=== PATIENT | male | born 1990 | race Caucasian/White ===

== ENCOUNTER 2019-01-03 22:19 | Emergency (ER) | payer SELFPAY ==
[~2019-01-03] VITALS: Ht 185.4 cm; Wt 105.5 kg
[2019-01-03 22:55] VITALS: Ht 185.4 cm; Wt 105.5 kg
[2019-01-04 01:28] VITALS: BP 132/82
== END 2019-01-04 01:53 | disposition home or self-care (01) ==
LOC: ED 22:19
DX: L50.9 Urticaria, unspecified (principal); A08.4 Viral intestinal infection, unspecified
CPT/HCPCS: 87804; J0171; J1200; J7512

== ENCOUNTER 2020-08-28 16:55 | Emergency (ER) | payer MEDICAID ==
[~2020-08-28] VITALS: Ht 182.9 cm; Wt 110.7 kg
[2020-08-28 17:01] VITALS: Ht 182.9 cm; Wt 110.7 kg
[2020-08-28] MEDS ORDERED: IBU400 M2 PO (17:43)
[2020-08-28] MEDS ORDERED: KEF500 PO (17:43)
[2020-08-28 18:25] VITALS: BP 134/78
== END 2020-08-28 17:50 | disposition home or self-care (01) ==
LOC: ED 16:55
DX: S61.012A Laceration without foreign body of left thumb without damage to nail, initial encounter (principal); W45.8XXA Other foreign body or object entering through skin, initial encounter; Y93.89 Activity, other specified; Y92.89 Other specified places as the place of occurrence of the external cause; Y99.8 Other external cause status
CPT/HCPCS: 90715; J2001